=== PATIENT | male | born 1960 | race Caucasian/White ===

== ENCOUNTER 2018-12-21 09:42 | Emergency (ER) | payer BC ==
--- NOTE | 2018-12-21 11:10 | RAD ---
RIGHT SHOULDER THREE VIEWS: History: Right shoulder pain after falling off a horse this weekend. FINDINGS: Area of ossification along the distal clavicle. This appears to be related, possibly, to an old injur y but does not appear acute. There is some minimal arthritic change of the glenohumeral joint space. IMPRESSION: No acute injury. POS: [facility]
--- NOTE | 2018-12-21 11:16 | RAD ---
AP PELVIS 1 VIEW: HISTORY: Pelvic injury after falling off a horse this weekend. FINDINGS/IMPRESSION: No fracture, dislocation, or other significant acute osseous abnormality. POS: [facility]
== END 2018-12-21 11:15 | disposition home or self-care (01) ==
LOC: SCSER 09:42
DX: T14.8XXA Other injury of unspecified body region, initial encounter (principal); V80.010A Animal-rider injured by fall from or being thrown from horse in noncollision accident, initial encounter
CPT/HCPCS: 72170